=== PATIENT | female | born 1990 | race Caucasian/White ===

== ENCOUNTER → 2016-06-23 | Outpatient (CLI) | payer OTHER ==
--- NOTE | 2016-06-23 10:43 | USB ---
Reason for exam: clinical finding. History: Took hormonal contraceptives for 3 years. Indicated problem(s): palpable abnormality in the left breast. Physical Findings: Nurse did not find any significant physical abnormalities on exam. US Breast LT Left breast ultrasound includes all four quadrants, the retroareolar region and axilla. Finding demonstrates a 10 x 3 x 6mm lymph node at BB at the axilla, benign lymph node. These results were verbally communicated with the patient and result sheet given to the patient on 06/23/16. ASSESSMENT: Benign, BI-RAD 2 RECOMMENDATION: Clinical management of the left breast. Manage patient on a clinical basis.
== END | disposition home or self-care (01) ==
LOC: RADMAMWWP 09:29
PROVIDERS: ATTEND Family Medicine
DX: R22.32 Localized swelling, mass and lump, left upper limb (principal)

== ENCOUNTER → 2017-04-27 | Outpatient (CLI) | payer OTHER ==
[2017-04-27 17:12] LABS: HCT 36.4 % (34.0-46.0); HGB 12.2 gm/dL (11.4-16.0); MCH 28.9 pg (25.0-35.0); MCHC 33.5 g/dL (31.0-37.0); MCV 86.4 fL (80.0-100.0); Mean Platelet Volume 7.8; Platelet Count 206 k/uL (150-450); RBC 4.21 m/uL (3.80-5.40); RDW 14.1 % (11.5-15.5); WBC 8.5 k/uL (3.8-10.6)
[2017-04-27 17:31] LABS: Glucose 85 mg/dL (74-99)
[2017-04-28 04:22] LABS: Toxoplasma Antibody (IgG) <3.0 IU/mL (<7.2); Toxoplasma Antibody (IgM) <3.0 AU/mL (<8.0)
--- NOTE | 2017-04-28 08:05 | US ---
EXAMINATION TYPE: US OB <= 14 wk fetus DATE OF EXAM: 04/27/2017 COMPARISON: NONE CLINICAL HISTORY: Z36 CONFIRM DUE DATE. CONFIRM DATES EXAM PERFORMED: Transabdominal (TA) EXAM MEASUREMENTS: GESTATIONAL AGE / DATING Physician Established: Not yet established Dates by LMP: (11 weeks/4 days) EDC: 11/12/17 Dates by First Scan: No previous this is first scan Dates by Current Scan for: (11 weeks/4 days) EDC: 11/12/17 MATERNAL ANATOMY Uterus: 9.3 x 6.8 x 9.1cm Right Ovary: 2.9 x 2.2 x 2.8cm Left Ovary: 4.1 x 1.8 x 1.6cm Post CDS / Adnexa: wnl Presence of free fluid: no Presence of corpus luteal cyst: yes, right ovary = 2.0 x 1.6 x 1.3cm GESTATION / SURVEY CRL: 4.8cm (11 weeks/4 days) Yolk Sac (normal less than 6mm): not seen Heart Rate: 170 bpm Rhythm: Normal IUP: Viable IUP Date of LMP: 02/05/17 Beta HcG (if available): unavailable Single viable IUP 11wks/4days with LUZMA of 11/12/17. Probable corpus luteum right ovary. IMPRESSION: Single viable IUP 11wks/4days with LUZMA of 11/12/17. Probable corpus luteum right ovary.
== END | disposition home or self-care (01) ==
LOC: RADUSWWP 16:25
PROVIDERS: ATTEND Obstetrics & Gynecology
DX: Z34.81 Encounter for supervision of other normal pregnancy, first trimester (principal)
CPT/HCPCS: 36415; 76801; 82565; 82947; 85027; 86762; 86777; 86778; 86780; 86850; 86900; 86901; 87340

== ENCOUNTER → 2017-07-28 | Outpatient (CLI) | payer OTHER ==
[2017-07-28 15:55] LABS: HCT 32.8 % (34.0-46.0); HGB 11.2 gm/dL (11.4-16.0); MCH 29.4 pg (25.0-35.0); MCHC 34.1 g/dL (31.0-37.0); MCV 86.1 fL (80.0-100.0); Mean Platelet Volume 7.8; Platelet Count 183 k/uL (150-450); RBC 3.81 m/uL (3.80-5.40); RDW 13.4 % (11.5-15.5); WBC 10.7 k/uL (3.8-10.6)
== END | disposition home or self-care (01) ==
LOC: LABWHC1 14:27
PROVIDERS: ATTEND Obstetrics & Gynecology
DX: Z34.82 Encounter for supervision of other normal pregnancy, second trimester (principal)
CPT/HCPCS: 36415; 82950; 85027

== ENCOUNTER 2017-08-03 09:13 | Outpatient (CLI) | payer OTHER ==
[2017-08-03 10:15] LABS: Appearance,Urine Cloudy (Clear); Bilirubin,Urine Negative (Negative); Blood,Urine Large (Negative); Color,Urine Yellow; Glucose,Urine (UA) Negative (Negative); Ketones,Urine Negative (Negative); Leukocyte Esterase,Urine Moderate (Negative); Mucus,Urine Moderate /hpf; Nitrite,Urine Negative (Negative); Protein,Urine Trace (Negative); RBC,Urine >182 /hpf (0-5); Specific Gravity,Urine 1.014 (1.001-1.035); Squamous Epithelial Cell,Urine 1 /hpf (0-4); Urobilinogen,Urine <2.0 mg/dL (<2.0); WBC,Urine 11 /hpf (0-5)
[2017-08-03 10:43] VITALS: BP 102/56; PULSE 73; RESP 18; TEMP 97.4
--- NOTE | 2017-08-25 20:21 | P.MSEPDOC ---
Presenting Problems - Arrival Data Date of Arrival on Unit: 08/03/17 Time of Arrival on Unit: 09:13 Mode of Transport: Ambulatory - Complaint OB-Reason for Admission/Chief Complaint: Pain Comment: lower abd cramping that wraps around to her back, rates pain at 7/10 Medical History - Information : 3 Para: 1 Term: 1 : 0 Abortions: Spontaneous or Elective: 1 Number of Living Children: 1 - Gestational Age Gestational Age by LUZMA (wks/days): 25 Weeks and 4 Days Review of Systems - Review of Systems Constitutional: No problems Breast: No problems ENT: No problems Cardiovascular: No problems Respiratory: No problems Gastrointestinal: No problems Genitourinary: No problems Musculoskeletal: No problems Neurological: No problems Skin: No problems Vital Signs - Temperature Temperature: 97.4 F Temperature Source: Oral - Pulse Right Pulse Rate: 73 Pulse Assessment Method: Automatic Cuff - Respirations Respiratory Rate: 18 Oxygen Delivery Method: Room Air O2 Sat by Pulse Oximetry: 100 - Blood Pressure Right Arm Blood Pressure: 102/56 Blood Pressure Mean: 71 Blood Pressure Source: Automatic Cuff Medical Screen Scoring (Pre) - Cervical Exam Dilation: Exam Deferred Effacement: Exam Deferred Membranes: Intact - Uterine Contractions Frequency: N/A Duration: N/A Intensity: N/A - Maternal Vital Signs Maternal Temperature: N/A Maternal Blood Pressure: N/A Signs of Preeclampsia: N/A Maternal Respirations: N/A - Pain Assessment Pain Scale Used: Numeric (1 - 10) Pain Intensity: 7 Pain Description: *Acute Pain Radiation Location: back Pain Frequency: Intermittent Pain Duration: 1 Pain Duration Units: Days Pain Behavior: Facial Grimacing, Vocalization - Maternal Trauma Maternal Trauma: N/A - Assessment Baseline FHR: 135 Heart Rate - NICHD Category: Category I (Normal) = 0 Position: N/A Station: N/A - Total Score Total Score (Pre): 0 - Level of Risk Level of Risk: Low (0-5) Physician Notification (Pre) - Physician Notified Physician Notified Date: 08/03/17 Physician Notified Time: 10:33 Physician/Practitioner Notifed:: Dr. Bryant Spoke With: Dr. Bryant New Order Received: Yes - Notification Comment Comment: orders to obtain FFN before cervical exam and put in order for urine culture Medical Screen Scoring (Post) - Cervical Exam Dilation: 0 cm = 0 Membranes: Intact - Uterine Contractions Frequency: N/A Duration: N/A Intensity: N/A - Maternal Vital Signs Maternal Temperature: N/A Signs of Preeclampsia: N/A Maternal Respirations: N/A - Pain Assessment Pain Scale Used: Numeric (1 - 10) Pain Intensity: 7 Pain Description: *Acute Pain Radiation Location: back Pain Frequency: Constant Pain Behavior: Moving Slowly, Vocalization Pain Aggravating Factors: Activity - Maternal Trauma Maternal Trauma: N/A - Assessment Heart Rate: 135 Heart Rate - NICHD Category: Category I (Normal) = 0 Position: N/A Station: N/A - Total Score Total Score (Post): 0 - Post Treatment Level of Risk Post Treatment Level of Risk: Low (0-5) Physician Notification (Post) - Physician Notified Physician Notified Date: 08/03/17 Physician Notified Time: 10:58 Physician/Practitioner Notified:: Dr. Bryant Spoke With: Dr. Bryant New Order Received: Yes - Notification Comment Comment: discharge pt home with instructions to increase oral fluids to flush kidney stone, and use tylenol for pain Disposition - Disposition OB Disposition: Discharge to home, Written follow up instructions reviewed Discharge Date: 08/03/17 Discharge Time: 11:10 I agree with the RN Medical Screening Exam: Yes Risk & Benefit of care provided described in d/c instruction: Yes Diagnosis: FALSE LABOR BEFORE 37 COMPLETED WEEKS OF GEST, THIRD TRI
== END 2017-08-03 11:05 | disposition home or self-care (01) ==
LOC: FBPOP 09:13
PROVIDERS: ATTEND Obstetrics & Gynecology
DX: O47.02 False labor before 37 completed weeks of gestation, second trimester (principal); Z3A.25 25 weeks gestation of pregnancy
CPT/HCPCS: 81001; 87086; G0463; 99213

== ENCOUNTER 2017-08-04 12:25 | Observation (INO) | payer OTHER ==
[2017-08-04 12:50] VITALS: RESP 18
[2017-08-04] MEDS ORDERED: ACETAMINOPHEN IV (For NPO) 1,000 MG in EMPTY BAG 1 BAG IVPB ONE (13:15)
[2017-08-04] MEDS: LACTATED RINGERS 1,000 ML IV ONE ×2 (13:23→14:58)
[2017-08-04] MEDS ORDERED: BUTORPHANOL 1 MG/ML 1 ML VIAL IV PRN (15:02)
[2017-08-04] MEDS ORDERED: ACETAMINOPHEN TAB 325 MG TAB PO PRN (15:04)
--- NOTE | 2017-08-04 15:33 | P.HPOB ---
History of Present Illness H&P Date: 08/04/17 Chief Complaint: right flank pain 27 year old presents at 25 weeks 5 days complaining of right flank pain. She was in triage yesterday with the same complaint and her urine showed a lot of blood. Culture is negative after 18 hours. She remains afebrile but the pain is worse so she returned. She has a history of kidney stones and this feels the same. no contractions, cervix was closed yesterday. heart tones are 130-135 with moderate variability. Review of Systems All systems: negative Constitutional: Denies chills, Denies fever Eyes: denies blurred vision, denies pain Ears, nose, mouth and throat: Denies headache, Denies sore throat Cardiovascular: Denies chest pain, Denies shortness of breath Respiratory: Denies cough Gastrointestinal: Denies abdominal pain, Denies diarrhea, Denies nausea, Denies vomiting Genitourinary: Denies dysuria, Denies hematuria Musculoskeletal: Denies myalgias Integumentary: Denies pruritus, Denies rash Neurological: Denies numbness, Denies weakness Psychiatric: Denies anxiety, Denies depression Endocrine: Denies fatigue, Denies weight change Past Medical History Past Medical History: No Reported History Additional Past Medical History / Comment(s): OB history: One termination, one vaginal delivery, THis is her third and she has had care with me since 10 weeks. O+, abs neg, Rub Imm, RPR NR, Hep B neg, toxo neg. History of Any Multi-Drug Resistant Organisms: None Reported Past Surgical History: Cholecystectomy Smoking Status: Current every day smoker Medications and Allergies Home Medications Medication Instructions Recorded Confirmed Type No Known Home Medications [No 12/23/14 12/23/14 History Known Home Medications] Pnv No.95/Ferrous Fum/Folic AC 1 each PO DAILY 08/03/17 08/04/17 History [ Multivitamin Tablet] Allergies Allergy/AdvReac Type Severity Reaction Status Date / Time No Known Allergies Allergy Verified 08/04/17 12:37 Exam Osteopathic Statement: *. No significant issues noted on an osteopathic structural exam other than those noted in the History and Physical/Consult. - Vital Signs Vital signs: Vital Signs Temp Pulse Resp BP Pulse Ox 08/04/17 12:46 98.3 F 93 18 111/60 96 Intake and Output 08/04/17 08/04/17 08/04/17 06:59 14:59 22:59 Other: Weight 57.153 kg HEart: RRR Lungs: CTAB Abdomen: soft, tender in right flank wraping to groin Extremeties: marnie dunham's Assessment and Plan (1) Right flank pain Narrative/Plan: suspect kidney stone Current Visit: Yes Status: Acute Code(s): R10.9 - UNSPECIFIED ABDOMINAL PAIN SNOMED Code(s): 171039016 Plan: 1. iv fluids 2. strain urine 3. pain control 4. monitor baby 30 minutes every shift
[2017-08-04] MEDS: ceFAZolin 1,000 MG in DEXTROSE/WATER 1 50ML.BAG IVPB SCH (15:49)
--- NOTE | 2017-08-04 17:55 | US ---
EXAMINATION TYPE: US kidneys/renal and bladder DATE OF EXAM: 08/04/2017 COMPARISON: NONE CLINICAL HISTORY: rt sided flank pain- ? kidney stones. patient with flank pain. EXAM MEASUREMENTS: Right Kidney: 10.3 x 4.6 x 4.6 cm Left Kidney: 9.5 x 4.6 x 4.4 cm Right Kidney: Inferior pole obscured by bowel gas, no masses or hydro identified Left Kidney: No hydronephrosis or masses seen Bladder: not distended, appears wnl There is no evidence for hydronephrosis at this point in time. No nephrolithiasis is seen. No yayo s are identified. The urinary bladder is anechoic. Bilateral ureteral jets are seen. IMPRESSION: No significant abnormality is seen.
[2017-08-04 19:26] VITALS: BMI 23.8
[2017-08-04] MEDS: LACTATED RINGERS 1,000 ML IV SCH ×2 (20:26→21:36)
[2017-08-04] MEDS: MORPHINE SULFATE 4 MG/ML SYRINGE IVP PRN (20:27)
[2017-08-05] MEDS: ceFAZolin 1,000 MG in DEXTROSE/WATER 1 50ML.BAG IVPB SCH ×2 (00:05→06:03)
[2017-08-05] MEDS: LACTATED RINGERS 1,000 ML IV SCH (00:05)
[2017-08-05] MEDS: MORPHINE SULFATE 4 MG/ML SYRINGE IVP PRN (00:06)
[2017-08-05] MEDS ORDERED: MAG HYDROX/AL HYDROX/SIMETH 30 ML CUP PO ONE (01:12)
[2017-08-05 01:38] VITALS: PULSE 74; TEMP 97.7
[2017-08-05 01:42] VITALS: BP 89/54
--- NOTE | 2017-08-05 08:12 | P.DS ---
Providers Date of admission: 08/04/17 15:34 Expected date of discharge: 08/05/17 Attending physician: Kendal Bryant Primary care physician: Stated None - Discharge Diagnosis(es) (1) Right flank pain Current Visit: Yes Status: Acute Hospital Course: 27-year-old presented at 25 weeks and 5 days with right flank pain and bloody urine. An ultrasound of her right kidney was normal and didn't reveal any stones. Culture of her urine was negative for infection. She was managed overnight with IV fluids and IV pain medication. There was some sediments in her urine when she was straining. Overnight she did have a panic attack and some epigastric discomfort with this, Maalox and astigmatic [place] helped to relieve this discomfort. Her nausea is improved this morning she was able to keep down breakfast. Her pain is still pretty constant but she will be able to go home on oral pain medication today. She is going to follow-up with me next week as scheduled. Plan - Discharge Summary New Discharge Prescriptions: New HYDROcodone/APAP 5-325MG [[place] 5-325] 1 - 2 tab PO Q6HR PRN #20 tab PRN Reason: Pain No Action Pnv No.95/Ferrous Fum/Folic AC [ Multivitamin Tablet] 1 each PO DAILY Discharge Medication List Pnv No.95/Ferrous Fum/Folic AC [ Multivitamin Tablet] 1 each PO DAILY [History] HYDROcodone/APAP 5-325MG [[place] 5-325] 1 - 2 tab PO Q6HR PRN #20 tab 08/05/17 [ Rx] Follow up Appointment(s)/Referral(s): Kendal Bryant DO [Doctor of Osteopathic Medicine] - 1 Week Discharge Disposition: HOME SELF-CARE
== END 2017-08-05 10:40 | disposition home or self-care (01) ==
LOC: FBPOP 12:25 → 4FBP 15:34
PROVIDERS: ADMIT Obstetrics & Gynecology; ATTEND Obstetrics & Gynecology
DX: O99.89 Other specified diseases and conditions complicating pregnancy, childbirth and the puerperium (principal); R31.9 Hematuria, unspecified; R11.0 Nausea; R10.9 Unspecified abdominal pain; Z87.442 Personal history of urinary calculi; O99.342 Other mental disorders complicating pregnancy, second trimester; F41.0 Panic disorder [episodic paroxysmal anxiety]; Z90.49 Acquired absence of other specified parts of digestive tract; O99.332 Smoking (tobacco) complicating pregnancy, second trimester; F17.200 Nicotine dependence, unspecified, uncomplicated; Z3A.25 25 weeks gestation of pregnancy
CPT/HCPCS: 96376; 96365; 96375; 76770; G0378 ×2; G0463; J2270 ×2; J0595; J0690 ×2; J0131; 96360; 96361; 99214

== ENCOUNTER → 2017-09-09 | Outpatient (CLI) | payer OTHER ==
[2017-09-09 11:56] LABS: HGB 11.7 gm/dL (11.4-16.0); MCH 30.4 pg (25.0-35.0); MCHC 35.4 g/dL (31.0-37.0); MCV 85.8 fL (80.0-100.0); Mean Platelet Volume 8.3; Platelet Count 192 k/uL (150-450); RBC 3.84 m/uL (3.80-5.40); RDW 13.1 % (11.5-15.5); WBC 8.6 k/uL (3.8-10.6)
[2017-09-09 12:13] LABS: ALT 27 U/L (9-52); AST 19 U/L (14-36)
== END | disposition home or self-care (01) ==
LOC: LABWHC1 11:37
PROVIDERS: ATTEND Obstetrics & Gynecology
DX: O26.619 Liver and biliary tract disorders in pregnancy, unspecified trimester (principal); Z3A.00 Weeks of gestation of pregnancy not specified
CPT/HCPCS: 36415; 84450; 84460; 85027

== ENCOUNTER → 2017-09-22 | Outpatient (CLI) | payer OTHER ==
[2017-09-22 14:27] LABS: ALT 25 U/L (9-52); AST 17 U/L (14-36)
== END | disposition home or self-care (01) ==
LOC: LABWHC1 13:54
PROVIDERS: ATTEND Obstetrics & Gynecology
DX: O26.619 Liver and biliary tract disorders in pregnancy, unspecified trimester (principal); Z3A.00 Weeks of gestation of pregnancy not specified
CPT/HCPCS: 36415; 82239; 84450; 84460

== ENCOUNTER 2017-10-08 18:23 | Outpatient (CLI) | payer OTHER ==
[2017-10-08 19:02] VITALS: BP 113/61; PULSE 87; RESP 16; TEMP 99
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
== END 2017-10-08 19:30 | disposition home or self-care (01) ==
LOC: FBPOP 18:23
PROVIDERS: ATTEND Obstetrics & Gynecology
DX: O99.89 Other specified diseases and conditions complicating pregnancy, childbirth and the puerperium (principal); G89.11 Acute pain due to trauma; Z3A.35 35 weeks gestation of pregnancy
CPT/HCPCS: 59025; G0463; 99213

== ENCOUNTER 2017-10-24 17:49 | Outpatient (CLI) | payer OTHER ==
[2017-10-24 19:11] VITALS: BP 114/69; PULSE 90; RESP 16; TEMP 97.6
--- NOTE | 2017-10-24 20:22 | P.MSEPDOC ---
Presenting Problems - Arrival Data Date of Arrival on Unit: 10/24/17 Time of Arrival on Unit: 19:49 Mode of Transport: Ambulatory - Complaint OB-Reason for Admission/Chief Complaint: Rule Out SROM Comment: leaking intermittently all day Medical History - Information : 3 Para: 1 Term: 1 : 0 Abortions: Spontaneous or Elective: 1 Number of Living Children: 1 - Gestational Age Gestational Age by LUZMA (wks/days): 37 Weeks and 2 Days Review of Systems - Review of Systems Constitutional: No problems Breast: No problems ENT: No problems Cardiovascular: No problems Respiratory: No problems Gastrointestinal: No problems Genitourinary: No problems Musculoskeletal: No problems Neurological: No problems Skin: No problems Vital Signs - Temperature Temperature: 97.6 F Temperature Source: Temporal Artery Scan - Pulse Right Brachial Pulse Rate: 90 Pulse Assessment Method: Automatic Cuff - Respirations Respiratory Rate: 16 Oxygen Delivery Method: Room Air - Blood Pressure Right Arm Blood Pressure: 114/69 Blood Pressure Mean: 84 Blood Pressure Source: Automatic Cuff Medical Screen Scoring (Pre) - Cervical Exam Dilation: 1-3 cm = 1 Membranes: Intact - Uterine Contractions Frequency: N/A Duration: N/A Intensity: N/A - Maternal Vital Signs Maternal Temperature: N/A Maternal Blood Pressure: N/A Signs of Preeclampsia: N/A Maternal Respirations: N/A - Pain Assessment Pain Scale Used: Numeric (1 - 10) Pain Intensity: 0 - Assessment Baseline FHR: 135 Heart Rate - NICHD Category: Category I (Normal) = 0 NST: Reactive Position: N/A Station: N/A - Total Score Total Score (Pre): 1 - Level of Risk Level of Risk: Low (0-5) Physician Notification (Pre) - Physician Notified Physician Notified Date: 10/24/17 Physician Notified Time: 18:38 Spoke With: Harrison Leiva Order Received: Yes - Notification Comment Comment: discharge to home wit instruction Disposition - Disposition OB Disposition: Triage, Discharge to home, Written follow up instructions reviewed Discharge Date: 10/24/17 Discharge Time: 18:42 I agree with the RN Medical Screening Exam: Yes Risk & Benefit of care provided described in d/c instruction: Yes Diagnosis: ENCOUNTER FOR FULL-TERM UNCOMPLICATED DELIVERY
== END 2017-10-24 18:42 | disposition home or self-care (01) ==
LOC: FBPOP 17:49
PROVIDERS: ATTEND Obstetrics & Gynecology
DX: O80 Encounter for full-term uncomplicated delivery (principal); Z3A.37 37 weeks gestation of pregnancy
CPT/HCPCS: 59025; 84112; G0463; 99213

== ENCOUNTER 2017-11-11 14:32 | Outpatient (CLI) | payer OTHER ==
[2017-11-11 14:57] VITALS: BP 110/65; PULSE 73; RESP 16; TEMP 98.3
--- NOTE | 2017-11-12 12:23 | P.MSEPDOC ---
Presenting Problems - Arrival Data Date of Arrival on Unit: 11/11/17 Time of Arrival on Unit: 14:40 Mode of Transport: Ambulatory - Complaint OB-Reason for Admission/Chief Complaint: Possible Onset of Labor Comment: contractions Medical History - Information : 3 Para: 1 Term: 1 : 0 Abortions: Spontaneous or Elective: 1 Number of Living Children: 1 - Gestational Age Gestational Age by LUZMA (wks/days): 39 Weeks and 6 Days Review of Systems - Review of Systems Constitutional: No problems Breast: No problems ENT: No problems Cardiovascular: No problems Respiratory: No problems Gastrointestinal: No problems Genitourinary: No problems Musculoskeletal: No problems Neurological: No problems Skin: No problems Vital Signs - Temperature Temperature: 98.3 F Temperature Source: Oral - Pulse Right Brachial Pulse Rate: 73 Pulse Assessment Method: Automatic Cuff - Respirations Respiratory Rate: 16 Oxygen Delivery Method: Room Air O2 Sat by Pulse Oximetry: 97 - Blood Pressure Right Arm Blood Pressure: 110/65 Blood Pressure Mean: 80 Blood Pressure Source: Automatic Cuff Medical Screen Scoring (Pre) - Cervical Exam Dilation: 1-3 cm = 1 Effacement: More than 50% = 2 Membranes: Intact - Uterine Contractions Frequency: > or = 36 weeks =2 Duration: N/A Intensity: N/A - Maternal Vital Signs Maternal Temperature: N/A Maternal Blood Pressure: N/A Signs of Preeclampsia: N/A Maternal Respirations: N/A - Pain Assessment Pain Location and Character: Back, Abdomen Pain Scale Used: Numeric (1 - 10) Pain Intensity: 6 Pain Management Goal: 6 Pain Frequency: Intermittent Pain Duration Units: Minutes Pain Behavior: None Exhibited, Vocalization - Assessment Heart Rate - NICHD Category: Category I (Normal) = 0 NST: Reactive - Total Score Total Score (Pre): 5 - Level of Risk Level of Risk: Low (0-5) Medical Screen Scoring (Post) - Cervical Exam Dilation: 1-3 cm = 1 Effacement: More than 50% = 2 - Uterine Contractions Frequency: > or = 36 weeks =2 Duration: N/A Intensity: N/A - Maternal Vital Signs Maternal Temperature: N/A Signs of Preeclampsia: N/A Maternal Respirations: N/A - Pain Assessment Pain Location and Character: Back, Abdomen Pain Scale Used: Numeric (1 - 10) Pain Intensity: 6 Pain Management Goal: 6 Pain Description: Aching Pain Frequency: Intermittent Pain Duration Units: Minutes Pain Behavior: None Exhibited, Vocalization - Maternal Trauma Maternal Trauma: N/A - Assessment Heart Rate: 120 Heart Rate - NICHD Category: Category I (Normal) = 0 NST: Reactive Position: N/A Station: N/A - Total Score Total Score (Post): 5 - Post Treatment Level of Risk Post Treatment Level of Risk: Low (0-5) Physician Notification (Post) - Physician Notified Physician Notified Date: 11/11/17 Physician Notified Time: 15:11 Physician/Practitioner Notified:: Manny Spoke With: Manny New Order Received: No - Notification Comment Comment: pt may be discharged home return in the am for scheduled IOL Disposition - Disposition OB Disposition: Discharge to home Discharge Date: 11/11/17 Discharge Time: 15:24 I agree with the RN Medical Screening Exam: Yes Risk & Benefit of care provided described in d/c instruction: Yes Diagnosis: FALSE LABOR AT OR AFTER 37 COMPLETED WEEKS OF GESTATION
== END 2017-11-11 15:25 | disposition home or self-care (01) ==
LOC: FBPOP 14:32
PROVIDERS: ATTEND Obstetrics & Gynecology
DX: O47.1 False labor at or after 37 completed weeks of gestation (principal); Z3A.39 39 weeks gestation of pregnancy
CPT/HCPCS: 59025; G0463; 99213

== ENCOUNTER 2017-11-12 06:03 | Inpatient (IN) | payer OTHER ==
[2017-11-12] MEDS ORDERED: CARBOPROST TROMETHAMINE 250 MCG/ML 1 ML AMP IM PRN (06:13)
[2017-11-12] MEDS ORDERED: OXYTOCIN 10 UNIT/ML 1 ML VIAL IM PRN (06:13)
[2017-11-12] MEDS ORDERED: AMPICILLIN 2,000 MG in SODIUM CHLORIDE 0.9% 100 ML IVPB STA (06:13)
[2017-11-12] MEDS ORDERED: LIDOCAINE 1% (PF) 10 MG/ML (30 ML SDV) SQ PRN (06:13)
[2017-11-12] MEDS ORDERED: TERBUTALINE 1 MG/ML VIAL SQ PRN (06:13)
[2017-11-12] MEDS ORDERED: METHYLERGONOVINE 0.2 MG/ML 1 ML AMP IM PRN (06:13)
[2017-11-12] MEDS ORDERED: OXYTOCIN 20 UNITS/1000 ML NS 1,000 ML IV SCH (06:15)
[2017-11-12] MEDS: LACTATED RINGERS 1,000 ML IV SCH ×3 (06:20→17:07)
[2017-11-12 06:40] LABS: Basophils % (A) 0 %; Eosinophils # (A) 0.1 k/uL (0-0.7); Eosinophils % (A) 1 %; HCT 31.9 % (34.0-46.0); HGB 10.7 gm/dL (11.4-16.0); Lymphocytes # (A) 1.7 k/uL (1.0-4.8); Lymphocytes % (A) 20 %; MCH 27.5 pg (25.0-35.0); MCHC 33.5 g/dL (31.0-37.0); MCV 81.9 fL (80.0-100.0); Mean Platelet Volume 9.2; Monocytes # (A) 0.6 k/uL (0-1.0); Monocytes % (A) 7 %; Neutrophils # (A) 5.8 k/uL (1.3-7.7); Neutrophils % (A) 71 %; Platelet Count 173 k/uL (150-450); RBC 3.89 m/uL (3.80-5.40); RDW 13.5 % (11.5-15.5); WBC 8.3 k/uL (3.8-10.6)
[2017-11-12] MEDS ORDERED: AMPICILLIN 1,000 MG in SODIUM CHLORIDE 0.9% 50 ML IVPB SCH (10:30)
[2017-11-12] MEDS ORDERED: ROPIVACAINE 100 MG, fentaNYL (PF) 200 MCG in SODIUM CHLORIDE 0.9% 76 ML EPIDURAL ONE (10:49)
--- NOTE | 2017-11-12 12:30 | P.HPOB ---
History of Present Illness H&P Date: 11/12/17 Chief Complaint: Labor 27-year-old presents at 40 weeks for induction of labor. Her cervix is 2 cm dilated, 80% effaced, and -2 station. She is vinod irregularly. heart tones 120-125 with moderate variability and reactive. Review of Systems All systems: negative Constitutional: Denies chills, Denies fever Eyes: denies blurred vision, denies pain Ears, nose, mouth and throat: Denies headache, Denies sore throat Cardiovascular: Denies chest pain, Denies shortness of breath Respiratory: Denies cough Gastrointestinal: Denies abdominal pain, Denies diarrhea, Denies nausea, Denies vomiting Genitourinary: Denies dysuria, Denies hematuria Musculoskeletal: Denies myalgias Integumentary: Denies pruritus, Denies rash Neurological: Denies numbness, Denies weakness Psychiatric: Denies anxiety, Denies depression Endocrine: Denies fatigue, Denies weight change Past Medical History Past Medical History: No Reported History Additional Past Medical History / Comment(s): OB history: One termination, one vaginal delivery, THis is her third and she has had care with ne since 10 weeks. O+, abs neg, Rub Imm, RPR NR, Hep B neg, toxo neg. History of Any Multi-Drug Resistant Organisms: None Reported Past Surgical History: Cholecystectomy Past Anesthesia/Blood Transfusion Reactions: No Reported Reaction Past Psychological History: Anxiety Smoking Status: Former smoker Past Alcohol Use History: Occasional Past Drug Use History: None Reported - Past Family History Mother History Unknown: Yes Father Family Medical History: Myocardial Infarction (HI) Medications and Allergies Home Medications Medication Instructions Recorded Confirmed Type No Known Home Medications 11/12/17 11/12/17 History Allergies Allergy/AdvReac Type Severity Reaction Status Date / Time No Known Allergies Allergy Verified 11/12/17 06:12 Exam Osteopathic Statement: *. No significant issues noted on an osteopathic structural exam other than those noted in the History and Physical/Consult. Vital Signs Temp Pulse Resp BP 11/12/17 06:30 97.8 F 74 16 116/74 Intake and Output 11/11/17 11/12/17 11/12/17 22:59 06:59 14:59 Other: Weight 68.946 kg Heart: Regular rate and rhythm Lungs: Clear to auscultation bilaterally Abdomen: Soft, nontender Extremities: Negative Homans sign Results Result Diagrams: 11/12/17 06:21 Abnormal Lab Results - Last 24 Hours (Table) 11/12/17 Range/Units 06:21 Hgb 10.7 L (11.4-16.0) gm/dL Hct 31.9 L (34.0-46.0) % Assessment and Plan (1) Normal labor Current Visit: Yes Status: Acute Code(s): O80 - ENCOUNTER FOR FULL-TERM UNCOMPLICATED DELIVERY; Z37.9 - OUTCOME OF DELIVERY, UNSPECIFIED SNOMED Code(s ): 15553201 Plan: 1. induction of labor with amniotomy and pitocin 2. anticipate normal vaginal delivery
[2017-11-12] MEDS ORDERED: HYDROCORTISONE 2.5% RECTAL CREAM 30 GM TUBE RECTAL PRN (17:22)
[2017-11-12] MEDS ORDERED: diphenhydrAMINE 50 MG CAP PO PRN (17:22)
[2017-11-12] MEDS ORDERED: ZOLPIDEM 5 MG TAB PO PRN (17:22)
[2017-11-12] MEDS ORDERED: ACETAMINOPHEN TAB 325 MG TAB PO PRN (17:22)
[2017-11-12] MEDS ORDERED: BENZOCAINE/MENTHOL SPRAY 1 GM/SPRAY AEROSOL TOPICAL PRN (17:22)
[2017-11-12] MEDS ORDERED: WITCH HAZEL 1 EACH MED..PAD TOPICAL PRN (17:22)
[2017-11-12] MEDS ORDERED: SIMETHICONE 80 MG CHEWABLE PO PRN (17:22)
[2017-11-12] MEDS ORDERED: diphenhydrAMINE 25 MG CAP PO PRN (17:22)
[2017-11-12] MEDS ORDERED: LANOLIN CREAM 5 GM TUBE TOPICAL PRN (17:22)
[2017-11-12] MEDS: SENNOSIDES-DOCUSATE SODIUM 1 EACH TAB PO SCH (20:38)
[2017-11-12] MEDS: IBUPROFEN 600 MG TAB PO PRN (20:38)
[2017-11-13] MEDS: IBUPROFEN 600 MG TAB PO PRN (03:25)
[2017-11-13 07:17] LABS: Basophils % (A) 0 %; Eosinophils # (A) 0.1 k/uL (0-0.7); Eosinophils % (A) 1 %; HCT 30.6 % (34.0-46.0); HGB 10.4 gm/dL (11.4-16.0); Lymphocytes # (A) 1.5 k/uL (1.0-4.8); Lymphocytes % (A) 15 %; MCH 28.1 pg (25.0-35.0); MCHC 33.9 g/dL (31.0-37.0); MCV 82.8 fL (80.0-100.0); Mean Platelet Volume 9.7; Monocytes # (A) 0.6 k/uL (0-1.0); Monocytes % (A) 6 %; Neutrophils # (A) 7.7 k/uL (1.3-7.7); Neutrophils % (A) 77 %; Platelet Count 156 k/uL (150-450); RDW 13.4 % (11.5-15.5)
[2017-11-13] MEDS: SENNOSIDES-DOCUSATE SODIUM 1 EACH TAB PO SCH (07:28)
[2017-11-13] MEDS: HYDROcodone/APAP 5-325MG 1 EACH TAB PO PRN ×4 (07:29→23:48)
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
--- NOTE | 2017-11-13 17:10 | P.PNOBGVD ---
Subjective - Subjective Principal diagnosis: Status post normal vaginal delivery day #1 Interval history: Patient seen and examined. Denies nausea, vomiting, chest pain, shortness of breath or calf pain. Patient reports: Reports appetite normal, Reports voiding normally, Reports pain well controlled, Reports ambulating normally [place]: doing well Objective - Latest Vital Signs Latest vital signs: Vital Signs Temp Pulse Resp BP 11/13/17 12:00 98.0 F 120 H 48 H 11/13/17 08:00 98.4 F 62 16 95/66 11/13/17 03:25 97.7 F 76 16 98/64 11/13/17 00:00 97.8 F 66 16 105/57 11/12/17 20:00 98.0 F 69 18 120/75 11/12/17 18:20 64 16 102/54 11/12/17 17:45 97.5 F L 61 16 101/61 11/12/17 17:15 56 L 19 108/72 Intake and Output 11/13/17 11/13/17 11/13/17 06:59 14:59 22:59 Other: # Voids 1 - Exam Lungs: bilateral: normal Chest: Normal S1, Normal S2 Extremities: Present: normal Abdomen: Present: normal appearance, soft Uterus: Present: normal, firm - Labs Labs: Abnormal Lab Results - Last 24 Hours (Table) 11/13/17 Range/Units 06:57 RBC 3.70 L (3.80-5.40) m/uL Hgb 10.4 L (11.4-16.0) gm/dL Hct 30.6 L (34.0-46.0) % Assessment and Plan (1) Normal labor Current Visit: Yes Status: Resolved Code(s): O80 - ENCOUNTER FOR FULL-TERM UNCOMPLICATED DELIVERY; Z37.9 - OUTCOME OF DELIVERY, UNSPECIFIED SNOMED Code(s ): 26624844 (2) Status post normal vaginal delivery Current Visit: Yes Status: Acute Code(s): [id number] - SNOMED Code(s): 307323591 Plan: 1. Continue care
[2017-11-14] MEDS: SENNOSIDES-DOCUSATE SODIUM 1 EACH TAB PO SCH ×2 (00:28→07:55)
[2017-11-14] MEDS: HYDROcodone/APAP 5-325MG 1 EACH TAB PO PRN ×2 (04:00→09:39)
[2017-11-14 08:06] VITALS: BP 107/68; PULSE 72; RESP 16; TEMP 97.9
--- NOTE | 2017-11-14 09:19 | P.PNOBGVD ---
Subjective - Subjective Principal diagnosis: Status post normal vaginal delivery day #2 Interval history: Patient seen and examined. She is complaining of intense pain in her pelvis with any type of movement. She says the pain is deep in her bones. It hurts to rollover in bed and especially to get up and walk. She can only walk with assistance. During delivery her family members were pushing back on her legs in the Cecilia position. I will consult ortho to see her today. Patient reports: Reports appetite normal, Reports voiding normally, Reports pain well controlled [place]: doing well Objective - Latest Vital Signs Latest vital signs: Vital Signs Temp Pulse Resp BP 11/14/17 08:00 97.9 F 72 16 107/68 11/14/17 00:00 98 F 79 15 105/70 11/13/17 16:30 97.9 F 69 16 112/70 11/13/17 12:00 98.0 F 68 16 Intake and Output 11/13/17 11/14/17 11/14/17 22:59 06:59 14:59 Other: # Voids 1 - Exam Lungs: bilateral: normal Chest: Normal S1, Normal S2 Extremities: Present: normal Abdomen: Present: normal appearance, soft Uterus: Present: normal, firm Assessment and Plan (1) Normal labor Current Visit: Yes Status: Resolved Code(s): O80 - ENCOUNTER FOR FULL-TERM UNCOMPLICATED DELIVERY; Z37.9 - OUTCOME OF DELIVERY, UNSPECIFIED SNOMED Code(s ): 74689107 (2) Status post normal vaginal delivery Current Visit: Yes Status: Acute Code(s): [id number] - SNOMED Code(s): 934374696 Plan: 1. pelvic x-rays 2. ortho consult
--- NOTE | 2017-11-14 10:20 | XR ---
EXAMINATION TYPE: XR pelvis complete , 3 VIEWS DATE OF EXAM ORDERED: 11/14/2017 HISTORY: pain after delivery. COMPARISON: None. FINDINGS: The bony pelvis is intact. No osseous lesion is seen. There is a solitary phlebolith in th e right hemipelvis. IMPRESSION: NO ACUTE OSSEOUS LESION.
[2017-11-14] MEDS: IBUPROFEN 600 MG TAB PO PRN (13:51)
== END 2017-11-14 14:26 | disposition home or self-care (01) | DRG 775 ==
LOC: 4FBP 06:03
PROVIDERS: ADMIT Obstetrics & Gynecology; ATTEND Obstetrics & Gynecology
PROC: 3E0R3BZ Introduction of Anesthetic Agent into Spinal Canal, Percutaneous Approach (ICD-10-PCS; principal; 2017-11-12)
PROC: 3E033VJ Introduction of Other Hormone into Peripheral Vein, Percutaneous Approach (ICD-10-PCS; principal; 2017-11-12)
PROC: 10E0XZZ Delivery of Products of Conception, External Approach (ICD-10-PCS; principal; 2017-11-12)
PROC: 00HU33Z Insertion of Infusion Device into Spinal Canal, Percutaneous Approach (ICD-10-PCS; principal; 2017-11-12)
PROC: 0HQ9XZZ Repair Perineum Skin, External Approach (ICD-10-PCS; principal; 2017-11-12)
PROC: 10907ZC Drainage of Amniotic Fluid, Therapeutic from Products of Conception, Via Natural or Artificial Opening (ICD-10-PCS; principal; 2017-11-12)
DX: O70.0 First degree perineal laceration during delivery (principal); Z37.0 Single live birth; Z3A.40 40 weeks gestation of pregnancy; Z87.891 Personal history of nicotine dependence; Z86.59 Personal history of other mental and behavioral disorders; Z90.49 Acquired absence of other specified parts of digestive tract; Z82.49 Family history of ischemic heart disease and other diseases of the circulatory system
CPT/HCPCS: 85025

== ENCOUNTER → 2024-10-28 | Outpatient (CLI) | payer OTHER ==
[2024-10-28 12:02] LABS: Basophils # (A) 0.03 10*3/uL (0.00-0.10); Basophils % (A) 0.5 %; Eosinophils # (A) 0.04 10*3/uL (0.04-0.35); Eosinophils % (A) 0.7 %; HCT 41.2 % (37.2-46.3); HGB 14.0 g/dL (12.0-15.0); Lymphocytes # (A) 1.37 10*3/uL (0.90-5.00); Lymphocytes % (A) 23.2 %; MCH 29.6 pg (27.0-32.0); MCHC 34.0 g/dL (32.0-37.0); MCV 87.1 fL (80.0-97.0); Monocytes # (A) 0.44 10*3/uL (0.20-1.00); Monocytes % (A) 7.4 %; Neutrophils # (A) 4.02 10*3/uL (1.80-7.70); Neutrophils % (A) 68.0 %; Platelet Count 170 10*3/uL (140-440); RBC 4.73 10*6/uL (4.10-5.20); RDW 13.5 % (11.5-14.5); WBC 5.91 10*3/uL (4.50-10.00)
[2024-10-28 13:26] LABS: RBC Morphology Normal
== END | disposition home or self-care (01) ==
LOC: LABWHC1 11:09
PROVIDERS: ATTEND Nurse Practitioner Family
DX: Z01.84 Encounter for antibody response examination (principal); D72.819 Decreased white blood cell count, unspecified
CPT/HCPCS: 36415; 85025; 86480; 86787